=== PATIENT | female | born 1965 | race Caucasian/White ===

== ENCOUNTER 2016-08-05 15:38 | Inpatient (IN) ==
[2016-08-05 21:11] LABS: PROTIME 10.5 Seconds (9.2-11.7); PTT 26.3 Seconds (22.0-36.0)
[2016-08-05 21:15] LABS: BASO% 1.6 % (0.0-0.8); EOS# 0.01 X1000 (0.0-0.7); EOS% 1.6 % (0.0-10.0); HEMATOCRIT 25.1 % (37.0-47.0); HEMOGLOBIN 8.3 g/dL (12.0-16.0); LYMPH# 0.47 X1000 (1.2-3.4); LYMPH% 75.8 % (20.5-51.1); MANUAL DIFF NEEDED? YES; MCHC 33.1 g/dL (33-37); MCV 90.6 FL (81-99); MONO# 0.08 X1000 (0.11-0.59); MONO% 12.9 % (1.7-9.3); MPV 9.3 FL (7.4-10.4); NEUT% 8.1 % (42.2-75.2); PLT 127 X1000 (130-400); RBC 2.77 XMIL (4.2-5.4)
[2016-08-05 21:21] LABS: AGAP 15; ALBUMIN 3.6 g/dL (3.5-5.0); ALKALINE PHOSPHATASE 105 U/L (32-104); BUN 8 mg/dL (8-22); CALCIUM 8.6 mg/dL (8.8-10.2); CHLORIDE 102 mmol/L (98-107); COSMO 274; GOT 12 U/L (10-30); GPT 24 U/L (10-36); POTASSIUM 3.7 mmol/L (3.5-5.1); SODIUM 138 mmol/L (136-145); TCO2 21 mmol/L (25-35); TOTAL BILIRUBIN 0.33 mg/dL (0.20-1.00); TOTAL PROTEIN 6.3 g/dL (6.3-8.3)
[2016-08-05 21:33] LABS: BANDS 4 % (0-1); EOS 4 % (1-10); LYMPHS 62 % (21-51); MONO 16 % (1-9)
[2016-08-05] MEDS ORDERED: CALMOSEPTINE OINTMENT TOP PRN (22:04)
[2016-08-05] MEDS: SODIUM CHLORIDE 0.9% INJ SCH (22:19)
[2016-08-05] MEDS: PROTONIX IV SCH (22:19)
[2016-08-05] MEDS ORDERED: NS 1,000 ML IV SCH (22:38)
[2016-08-05] MEDS ORDERED: PHENERGAN PO PRN (23:21)
[2016-08-05] MEDS: TYLENOL PO PRN (23:24)
[2016-08-05] MEDS: MAXIPIME 1 GM/NS 1 GM/50 ML IVPB IV SCH (23:24)
[2016-08-05 23:34] LABS: URINE CULTURE NEEDED? NO; URINE SOURCE CLEAN CATCH
[2016-08-06 00:10] LABS: BILIRUBIN URINE NEGATIVE (NEGATIVE); BLOOD URINE NEGATIVE (NEGATIVE); COLOR YELLOW; GLUCOSE URINE NEGATIVE (NEGATIVE); LEUKOCYTES URINE NEGATIVE (NEGATIVE); NITRITE URINE NEGATIVE (NEGATIVE); PROTEIN URINE 50 mg/dL (NEGATIVE); TURBIDITY URINE HAZY (CLEAR); UROBILINOGEN URINE NORMAL (NORMAL)
[2016-08-06 00:11] LABS: URINE MICRO REVIEW NEEDED? YES
[2016-08-06 00:17] LABS: UR EPITHELIAL CELLS <10 /HPF (<10); URINE BACTERIA NEGATIVE /HPF; URINE RBC <10 /HPF (<10); URINE WBC <10 /HPF (<10)
[2016-08-06 00:23] LABS: URINE CASTS NONE SEEN; URINE CRYSTALS NONE SEEN; URINE SMALL ROUND CELLS NONE SEEN
[2016-08-06] MEDS ORDERED: MOTRIN PO PRN ×2 (01:56)
[2016-08-06] MEDS: FLAGYL 500 MG/NS 500 MG/100 ML IVPB IV SCH ×2 (04:42→17:55)
[2016-08-06] MEDS: ZOFRAN IV PRN ×2 (06:29→22:47)
[2016-08-06 06:47] LABS: AGAP 15; BUN 7 mg/dL (8-22); CALCIUM 8.5 mg/dL (8.8-10.2); CHLORIDE 103 mmol/L (98-107); COSMO 276; POTASSIUM 3.4 mmol/L (3.5-5.1); SODIUM 138 mmol/L (136-145); TCO2 20 mmol/L (25-35)
[2016-08-06 07:03] LABS: BASO% 3.1 % (0.0-0.8); EOS# 0.01 X1000 (0.0-0.7); EOS% 1.6 % (0.0-10.0); HEMATOCRIT 23.1 % (37.0-47.0); HEMOGLOBIN 7.4 g/dL (12.0-16.0); LYMPH# 0.44 X1000 (1.2-3.4); LYMPH% 68.8 % (20.5-51.1); MANUAL DIFF NEEDED? YES; MCH 29.2 PG (27-31); MCV 91.3 FL (81-99); MONO# 0.11 X1000 (0.11-0.59); MONO% 17.2 % (1.7-9.3); MPV 9.5 FL (7.4-10.4); NEUT% 9.3 % (42.2-75.2); PLT 103 X1000 (130-400); RBC 2.53 XMIL (4.2-5.4)
[2016-08-06 07:24] LABS: EOS 2 % (1-10); LYMPHS 72 % (21-51); MONO 16 % (1-9)
--- NOTE | 2016-08-06 07:56 | HISTORY AND PHYSICAL ---
PRIMARY CARE PROVIDER: ONEIL Portillo CHIEF COMPLAINT: Diarrhea. HISTORY OF PRESENT ILLNESS: Ms. Gomez is a 50-year-old, female who has a history of recent diagnosis with left breast cancer currently receiving chemotherapy and being followed by Dr. Brandt. The patient received her last chemotherapy treatment last Monday, July 29. The patient reports that yesterday on August 04, that she began having diarrhea and reports that in the last 24 hours, she has had approximately 7 episodes of diarrhea. She reports that her stools are very watery, though light brown in color. She denies any hematochezia or melena. She also reports a productive cough for the past few days as well stating that her sputum greenish brown in color. She also reports some body aches and chills though denied any knowledge of fever. The patient reports some nausea though denied any vomiting. She denied any dizziness, lightheadedness, shortness of breath, chest pain, abdominal pain, dysuria or urinary frequency. She denies any eye pain, numbness, tingling or swelling in extremities. The patient initially presented to the ER at [place] for evaluation of her diarrhea. Upon further evaluation, lab work did reveal that the patient was neutropenic with a white blood cell count is 0.6. Hemoglobin was 8.9 and hematocrit was 27.8. Chemistry labs were within normal limits. An abdomen flat and upright with single view of the chest showed no evidence of acute intrathoracic or intra-abdominal abnormality. The patient was accepted to [facility] by Dr. Patterson and was transferred to an inpatient bed. The patient also denied being around anyone else who was sick. She denied any recent travel. She only stated that both of her daughters have had sinus allergy-type symptoms. The patient did have a fever recorded at [place] of 101.6, though upon arrival at this time, her fever has come down to 100.7. The patient has been placed for inpatient admission for neutropenic fever as well as breast cancer and we will consult Dr. Brandt as well for further evaluation and recommendations. REVIEW OF SYSTEMS: A 12 point review of systems was conducted with the patient and all were negative except for pertinent positives mentioned above in the HPI. PAST MEDICAL HISTORY: 1. Hypertension. 2. Hyperlipidemia. 3. Depression. 4. Gastroesophageal reflux disease. 5. Malignant neoplasm of the upper outer quadrant of the left breast. PAST SURGICAL HISTORY: . SOCIAL HISTORY: The patient is and currently lives with her spouse. She has 2 daughters. The patient reports that she has smoked about half a pack per day for about 25 years, though has recently cut this down to approximately 2 cigarettes per day. She denies any alcohol or illicit drug use. FAMILY HISTORY: Positive for her mother having a history of hypertension. Her father has a history of heart disease and hypertension. Both her mother and father are . Her brother had a history of heart disease and diabetes mellitus. Her sister has a history of heart disease and she had 1 brother that at a young age who had a history of Down' s syndrome with cardiac problems. She does have an aunt who has a history of breast cancer. ALLERGIES: Patient reports allergies to sulfa. HOME MEDICATIONS: 1. Atorvastatin 40 mg p.o. daily. 2. BuSpar 7.5 mg p.o. b.i.d. 3. Losartan 50 mg p.o. daily. 4. Prozac 20 mg p.o. at bedtime and 40 mg p.o. daily for a total daily dose of 60 mg. 5. Gabapentin 600 mg p.o. t.i.d. 6. Lasix 40 mg p.o. daily p.r.n. for swelling. 7. Methocarbamol 750 mg p.o. t.i.d. 8. [place] 10 one tablet p.o. q.6 hours p.r.n. for pain. 9. Protonix 40 mg p.o. daily. 10. Phenergan 25 mg p.o. q.6 hours p.r.n. for nausea. 11. Zofran ODT 8 mg sublingual q.8 hours p.r.n. for nausea. DIAGNOSTIC DATA: Laboratory results: White blood cell count 0.62, red blood cell count 2.77, hemoglobin 8.3, hematocrit 25.1; absolute neutrophils 0.05. Platelet count was 127,000. PT 10.5, INR 1.00, PTT is 26.3. Sodium 138, potassium 3.7, chloride 102, bicarbonate 21 , BUN is 8, creatinine 0.6. Glucose 104, calcium 8.6, total bilirubin 0.33, AST is 12, ALT 24, alkaline phosphatase 105. Urinalysis obtained via clean catch was positive for protein that was negative for glucose, ketones, blood, nitrites, leukocytes, and white cells. Chest, 2 view, showed no acute abnormality, though we are awaiting the official radiology over- read. Pending diagnostic studies at this time are blood cultures, stool studies and urine culture. PHYSICAL EXAMINATION: VITAL SIGNS: Temperature 100.7 degrees orally, heart rate 102, blood pressure 128/69, oxygen saturation is 98% on room air. Respirations are 18 per minute. GENERAL: Ms. Gomez is a very pleasant 50-year-old, female, who was resting comfortably in the inpatient bed. She was in no acute distress. She was awake, alert, and able to answer all questions appropriately. HEENT: Head is atraumatic, normocephalic. Pupils are equal, round, reactive to light and were 3 mm bilaterally and brisk. Subconjunctivae were slightly pale. Oropharynx was clear. Oral mucosa is moist. NECK: Supple. Trachea midline. CARDIOVASCULAR: Patient has normal S1, S2. No murmurs, gallops, rubs appreciated, with a slightly tachycardic rate that is regular. PULMONARY: Patient has symmetrical chest expansion bilaterally. Lung sounds are clear to auscultation in bilateral full mahan. ABDOMEN: Soft, nontender, nondistended, though the patient does have a protuberant abdomen noted. Bowel sounds were present in all 4 quadrants and were normoactive. The patient has no CVA tenderness noted upon palpation. EXTREMITIES: No cyanosis, clubbing, or edema noted. Pulse, motor and sensory were intact in all extremities. Pedal pulses and radial pulses are 2+ bilaterally. INTEGUMENTARY: Patient's skin is pink, warm, dry, and intact. No lesions or sores noted. NEUROLOGICAL: Patient is alert, oriented to person, place, time and situation. Cranial nerves 2- 12 are grossly intact. ASSESSMENT AND PLAN: 1. Neutropenic fever. As previously mentioned, we have obtained blood cultures and a urine culture. We have also placed orders for stool studies and sputum culture as well. Patient's chest x-ray shows no acute abnormality. We will go ahead and cover the patient with cefepime 1 g IV q.12 hours as well as Flagyl 500 mg IV q.8 hours. At this time, the patient has been running a fever with a previous reading of 101.6 and with treatment of Tylenol, her temperature did reduce to 100.7, and we will monitor this closely. We have placed a consult with Dr. Brandt as well and will await her evaluation and further recommendations. 2. Left breast cancer. The patient did just recently receive her 5th dose of chemotherapy with the last dose being on the 29 of July. We have consulted Dr. Brandt as previously mentioned. We will await her evaluation and further recommendations. 3. Diarrhea. We have placed stools studies and are awaiting these results at this time and we will continue to follow. We have also implemented gentle fluid resuscitation with normal saline at 75 mL/h. 4. Hypertension. We will continue the patient's Cozaar and will continue to follow. 5. Hyperlipidemia. We will continue the patient's atorvastatin. 6. Depression. We will continue the patient's Prozac. The patient will be placed on the medical floor with telemetry. She has been placed on neutropenic precautions. She will have vital signs q.6 hours with strict intake and output. DVT prophylaxis provided with SCDs. GI prophylaxis with Protonix 40 mg IV q.24 hours. We will implement Tylenol and Motrin for fever control. Further orders and recommendations pending hospital course, diagnostic studies and physician evaluation. Dictated by ONEIL Car for Michael Moody MD cc: Michael Moody MD pt examined, agree with above, will follow closely, need to closely work up fever, have empirically started abx to cover c diff and GNR infection per IDSA crinadiyaia APBOB MTDD
--- NOTE | 2016-08-06 08:04 | Diag Imaging Result Doc PS360 ---
EXAM: CHEST-2 VIEWS HISTORY: Productive cough, fever TECHNIQUE: PA and lateral COMMENT: There are granulomata in both upper lobes and the right hilum. There is a Port-A-Cath in the right internal jugular with its tip in the superior vena cava. The heart size and pulmonary vascularity are within normal limits. There are no previous studies. There is a prominent right epicardial fat pad. IMPRESSION: No evidence of acute disease. Electronically signed by Junior Santa 08/06/2016 8:01 AM
[2016-08-06] MEDS: PROZAC PO SCH (10:39)
[2016-08-06] MEDS: NEURONTIN PO SCH ×3 (10:39→17:56)
[2016-08-06] MEDS: ROBAXIN PO SCH ×3 (10:39→17:55)
[2016-08-06] MEDS: COZAAR PO SCH (10:40)
[2016-08-06] MEDS: BUSPAR PO SCH ×2 (10:40→22:48)
[2016-08-06] MEDS: MAXIPIME 1 GM/NS 1 GM/50 ML IVPB IV SCH ×2 (10:50→22:51)
[2016-08-06] MEDS ORDERED: NEUPOGEN SUBQ SCH (11:55)
--- NOTE | 2016-08-06 12:41 | Diag Imaging Result Doc PS360 ---
EXAM: THORAX/ABDOMEN/PELVIS HISTORY: neutropenic fever TECHNIQUE: CT of the chest with intravenous contrast, CT of the abdomen and pelvis with intravenous and oral contrast, and reduced dose (clarity.) COMMENT: Compared to the previous study of 05/31/2016 there has been some diminishment in the heterogeneous density within the left breast as well as the enlarged axillary nodes which were present at the time the previous study. The largest node on the time the previous study has decreased by volume by at least 75%. There is no evidence of significant adenopathy in the miranda or mediastinum. There is a filling defect in a left lower lobe branch of the the pulmonary artery consistent with an embolus. This was not present time the previous study. There is an additional embolus in a peripheral branch in the right lower lobe posteromedially. There are no abnormal fluid collections. There are scattered calcified granulomata. There is a sclerotic lesion anterior to the right pedicle of T11 which may be a osteoblastic metastasis. This is also present in the time the previous study. CT of the abdomen with intravenous and oral contrast: The liver is hypodense suggesting fatty change. The left adrenal gland is unremarkable. There is a nodule or nodules in the anterior central portion of the right adrenal gland which has not changed appreciably since the previous study. This is too small to characterize. The kidneys are without evidence of hydronephrosis or mass. There is very subtle stranding in the fat surrounding the gallbladder. Gallbladder is filled with stones in the 11 mm size range. The pancreas is unremarkable. There are granulomata in the spleen. The small bowel is not distended. There are some colonic diverticula particularly in the left colon. No retroperitoneal adenopathy is present. The appendix is normal in appearance and passes posterior to the lower portion of the right hepatic lobe. CT of the pelvis with intravenous and oral contrast: There is a fat-containing ventral hernia. There is no evidence of diverticulitis although there is considerable diverticulosis in the sigmoid colon. There is a calcification in the distal gonadal vein on the left. The ovaries are not enlarged. The urinary bladder is not particularly distended and there is no evidence of abnormal fluid collections. There are bone islands in both femoral heads. There are also what appear to be bone islands in the right ilium just above the acetabulum. There is vacuum joint phenomenon in the sacroiliac joints. There is three punctate areas of sclerosis in the right side of the sacrum which are nonspecific in appearance and have not changed significantly since the previous study. There is bilateral spondylolysis at L5. There is a sclerotic focus in the right side of the L3 vertebral body which may represent a metastasis. IMPRESSION: 1. Bilateral peripheral lower lobe pulmonary emboli. Probable osseous metastasis at T11. Improved left axillary adenopathy. 2. Hepatic steatosis. Cholelithiasis. The possibility of cholecystitis cannot be entirely excluded and clinical correlation is recommended. 3. Possible osseous metastasis at L3. The findings were discussed with Yuri Cantor MD at 08/06/2016 12:39 PM. Electronically signed by Junior Santa 08/06/2016 12:39 PM
[2016-08-06] MEDS ORDERED: NS 500 ML ONE (13:54)
[2016-08-06] MEDS: GRANIX SUBQ SCH (13:58)
[2016-08-06] MEDS: LOVENOX SUBQ SCH (14:21)
--- NOTE | 2016-08-06 15:33 | PROGRESS NOTE ---
DATE: 08/06/2016 This morning, Ms. Gomez refers to be doing fine. According to her she has been diagnosed of left breast cancer. We do not have any records in the EMR so we do not know the receptor status and genetic studies on that. However she has been getting chemotherapy. Last Monday was the 5th chemo that she got and the plan is for her to finish chemo and then get surgery for tumor removal. Since 3 days ago she has been having profuse diarrhea which is nonbloody associated with some fever and some cough. The patient presented to the emergency department yesterday and has been evaluated. Was found to have a temperature at one point of 101.2. Was tachycardic at 115 and lab work showed that she was severely neutropenic. OBJECTIVE: Vital signs: Now blood pressure is 111/40, pulse of 97, respirations 18, temperature 98.3 degrees. General: Ms. Gomez is a 50-year-old female, morbidly obese with a BMI of 37. She was in bed. She had a lot of blankets on her. She said she felt cold. HEENT: Mucosa is pink and moist. Anicteric. Acyanotic. Neck: Supple. Chest: Good air entry bilaterally. No crepitations. Cardiovascular: Regular rate and rhythm. Abdomen: Soft, nontender. Extremities: No pedal edema. LOCUM TENENS: Patient is alert and oriented x4. Breast exam: The left breast has an inverted nipple. Also has about maybe 4 x 3 mass on the left upper quadrant almost to the to the nipple. There was not any other changes of the skin overlying the mass. I did not feel any lymph nodes. LABORATORY DATA: WBC is 0.64, hemoglobin is 7.4, platelet count of 103,000. Sodium is 138, potassium is 3.4, chloride is 103, bicarb is 24. A chest x-ray which was done on presentation showed no evidence of acute disease. ASSESSMENT: 1. Severe neutropenic fever. Absolute neutrophil count is about 64. Patient blood cultures have been done and stool studies have also been ordered. Results are still pending. 2. Sepsis likely due to the source from GI. 3. Profuse diarrhea. This could potentially be side effects from the chemotherapy however typhilitis is also a consideration that would have to be in mind. Will be doing a CT scan of the abdomen and pelvic. 4. Cough. In the setting of neutropenic fever we want to make sure that there is not any pneumonia or any brewing infection in the lungs so we will we will add a CT of the chest to the studies above. 5. Pancytopenia likely due to chemotherapy side effects. We will continue symptomatic management and transfuse appropriately. Patient has been started on Neupogen. We will follow up with further recommendations from Heme-Onc. So in general, Ms. Gomez has been admitted because of severe neutropenic fever. We will do a CT scan of the chest, abdomen and pelvis. We are also waiting on the blood cultures, urine cultures and stool studies. We will continue with the current antibiotics including cefepime with metronidazole and continue with IV fluids. cc: Yuri Cantor MD Review Ct Report: IMPRESSION: 1. Bilateral peripheral lower lobe pulmonary emboli. Probable osseous metastasis at T11. Improved left axillary adenopathy. 2. Hepatic steatosis. Cholelithiasis. The possibility of cholecystitis cannot be entirely excluded and clinical correlation is recommended. 3. Possible osseous metastasis at L3. The findings were discussed with Yuri Cantor MD at plan: start Lovenox 1mg/kg request RUQ U/S Consult surgery MTDD
--- NOTE | 2016-08-06 17:08 | CONSULTATION ---
DATE OF CONSULTATION: 08/06/2016 ADMITTING PHYSICIAN: Dr. Jacinto Moody. REQUESTING PHYSICIAN: Dr. Moody. We appreciate this consult. CHIEF COMPLAINT: Neutropenic fever. HISTORY OF PRESENT ILLNESS: Ms. Gomez is a very pleasant, 50-year-old female, well known to Dr. Brandt with a history of recent diagnosis of left breast cancer stage III, triple negative, on neoadjuvant treatment with Adriamycin and Cytoxan. She is status post cycle 4 with her last treatment being 07/29/2016. The patient reports that she has had recent worsening chills and diarrhea. She denies any hematochezia or melena. Additionally she reports that she has had a cough that is productive of greenish brown sputum. She denies any dysuria at this time. The patient reports that she felt warm and felt that she had a fever but did not take her temperature. Upon presentation to [facility] the patient was found to have a temperature of 100.0 degrees. Additionally on presentation the patient's white blood cell count is found to be 0.64 with an ANC of 0.06. The patient is admitted to [facility] and is currently on reverse isolation. Blood cultures have been drawn. Chest x-ray is negative for any acute disease. Urinalysis with urine cultures are currently pending at this time. She is currently on broad-spectrum antibiotic with cefepime. PAST MEDICAL HISTORY: 1. Hypertension. 2. Hyperlipidemia. 3. Depression. 4. Gastroesophageal reflux disease. 5. Newly diagnosed triple negative stage III breast cancer on neoadjuvant treatment with Adriamycin and Cytoxan. PAST SURGICAL HISTORY: Significant for section. SOCIAL HISTORY: The patient is and lives with her spouse. She has a history of smoking 1/2 pack cigarettes daily x25 years. She denies any alcohol or illicit drug use. FAMILY HISTORY: Significant for an aunt with breast cancer and is otherwise negative for any hematologic or oncologic problem. MEDICATIONS ON ADMISSION: 1. Atorvastatin. 2. BuSpar. 3. Losartan. 4. Prozac. 5. Gabapentin. 6. Lasix. 7. Methocarbamol. 8. [place]. 9. Protonix. 10. Phenergan. 11. Zofran. ALLERGIES: Are to sulfa. REVIEW OF SYSTEMS: A 14 point review of systems was obtained and is negative except as mentioned in HPI. PHYSICAL EXAM: Ms. Gomez is a very pleasant, 50-year-old female, lying supine in bed in no immediate distress.Vital Signs: Temperature 98.3 degrees, blood pressure 111/40, heart rate 94, respirations 14, O2 saturation is 97% on room air. HEENT: Normocephalic, atraumatic. Mucous membranes are pale and somewhat dry. Sclerae is anicteric. Extraocular movements intact. Neck: Supple. Lungs: With coarse breath sounds especially in the bases. Otherwise clear to auscultation bilaterally. Chest: Expansion is equal bilaterally. CV: S1, S2 is heard without murmur, rub or gallop. Abdomen: Soft, nondistended, nontender. Bowel sounds are positive in all quadrants without rebound or guarding. Extremities: Without clubbing, cyanosis, or edema. Dermatologic: No rashes, bruises or lesions. Neurologic: Patient is awake, alert, and oriented x3. She has no focal motor deficit at this time. LABORATORY DATA: Sodium 138, potassium 3.4, chloride 103, CO2 is 20, BUN 7, creatinine 0.6, and glucose is 136. Hemoglobin 7.4, hematocrit 23.1, white blood cell count is 0.64. Platelets are 103,000. ANC is 0.06. Cultures are currently pending. Chest x-ray is negative for any acute disease. ASSESSMENT AND PLAN: 1. Neutropenic fever with an ANC of 0.06. The patient is currently afebrile with a temperature of 98.3 degrees. Cultures are currently pending. Chest x-ray is negative for any acute disease. The patient is currently on cefepime broad-spectrum. We agree with cefepime at this time. We would add Neupogen daily to her regimen. We will continue to monitor CBC. 2. Anemia with a hemoglobin of 7.4. We will order 2 units packed red blood cells at this time and monitor CBC daily. 3. Newly diagnosed triple negative stage III breast cancer on neoadjuvant treatment with Adriamycin and Cytoxan status post cycle 4. Her last treatment was on July 29. We will hold her treatment until her acute illness passes. 4. Diarrhea which is improving. Will continue to monitor. Cultures are currently pending. 5. Hypertension which is stable. Blood pressure is 111/40 at this time. We will continue to monitor. 6. Hyperlipidemia, would continue treatment. 7. DVT prophylaxis. The patient is currently wearing SCDs. 8. We will continue to follow along and make further recommendations pending outcomes. The above reflects the history, exam, assessment and plan of Dr. Galeano. Dictated by ONEIL Juan for Shayan Galeano MD cc: ONEIL Juan MD
[2016-08-06] MEDS: NORCO-10 PO PRN ×2 (17:33→23:32)
--- NOTE | 2016-08-06 19:06 | CONSULTATION ---
DATE OF CONSULTATION: 08/06/2016 HISTORY OF PRESENT ILLNESS: Ms. Caro Gomez was admitted yesterday on 08/05/2016 with neutropenic fever with an absolute neutrophil count of 0.06. She is being treated with neoadjuvant chemotherapy for triple negative left breast cancer. She has been on Adriamycin and Cytoxan and has received 4 cycles, the last 1 on 07/29/2016. She was admitted with worsening chills and fever and diarrhea. She underwent a CT scan of her abdomen and pelvis as part of her evaluation, which documented a gallbladder full of stones and we were asked to evaluate her. She has received 2 units of packed red blood cells over the last 24 hours for hemoglobin of 7.4. She is on IV antibiotics. PAST MEDICAL HISTORY: Hypertension, hyperlipidemia, depression, gastroesophageal reflux and newly diagnosed left breast cancer, triple negative, receiving neoadjuvant chemotherapy. PAST SURGICAL HISTORY: . SOCIAL HISTORY: She is a smoker. She lives with her spouse. She has had care in [place] including Dr. Johnson, who placed the right-sided port and also referred her to Dr. Brandt. FAMILY HISTORY: She has an aunt with breast cancer. REVIEW OF SYSTEMS: A 14-point review of systems was performed and besides undergoing her chemotherapy and her most recent diagnosis of left breast cancer, it is essentially negative. MEDICATIONS: Atorvastatin, BuSpar, losartan, Prozac, gabapentin, Lasix, methocarbamol, [place], Protonix and most recently Adriamycin and Cytoxan. ALLERGIES: No known drug allergies. PHYSICAL EXAMINATION: General: Ms. Gomez is overweight. She has lost her hair but she is awake, cooperative, in no acute distress. HEENT: She has no jaundice. No oral lesions. No cervical or supraclavicular lymphadenopathy. Breast: She has a left breast cancer. No scars on either breast. Abdomen: Soft. I could not palpate any ventral hernia. There is no previous scars except the scar. Did not appear to be tender in the right upper quadrant. She had no costovertebral tenderness. Rectal/Vaginal: Exams not performed. Extremities: She did have palpable femoral pulses. She has no peripheral edema. Neuro: No focal deficits. DIAGNOSTIC DATA: Her blood counts are all low. She has received packed red blood cells. Her white blood cell count is 0.6. CT suggests gallstones. IMPRESSION: Chronic cholecystitis with cholelithiasis in a patient diagnosed with triple negative left breast cancer on neoadjuvant chemotherapy with low blood counts. PLAN: I will have to coordinate elective laparoscopic cholecystectomy with her medical oncologist. We want to proceed when her blood counts are within normal range. She is on IV antibiotics now with improvement of her symptoms and her blood counts are also improving with the current treatment. cc: Ayanna Jolly MD
[2016-08-06] MEDS ORDERED: PROZAC PO SCH (21:00)
[2016-08-06] MEDS: SODIUM CHLORIDE 0.9% INJ SCH (22:47)
[2016-08-06] MEDS: PROTONIX IV SCH (22:47)
[2016-08-06] MEDS: LIPITOR PO SCH (22:49)
[2016-08-07] MEDS: LOVENOX SUBQ SCH ×2 (02:11→14:27)
[2016-08-07] MEDS: FLAGYL 500 MG/NS 500 MG/100 ML IVPB IV SCH ×3 (02:11→17:56)
[2016-08-07] MEDS: TYLENOL PO PRN (05:54)
[2016-08-07 07:20] LABS: BASO% 2.9 % (0.0-0.8); EOS# 0.01 X1000 (0.0-0.7); EOS% 0.4 % (0.0-10.0); HEMOGLOBIN 8.5 g/dL (12.0-16.0); IMM GRAN# 0.16 X1000 (0.0-0.04); IMM GRAN% 5.8 % (0.0-0.5); LYMPH# 1.15 X1000 (1.2-3.4); LYMPH% 41.5 % (20.5-51.1); MANUAL DIFF NEEDED? YES; MCH 29.7 PG (27-31); MCHC 32.7 g/dL (33-37); MCV 90.9 FL (81-99); MONO# 0.68 X1000 (0.11-0.59); MONO% 24.5 % (1.7-9.3); MPV 10.4 FL (7.4-10.4); NEUT% 24.9 % (42.2-75.2); PLT 105 X1000 (130-400); RBC 2.86 XMIL (4.2-5.4)
--- NOTE | 2016-08-07 07:55 | Diag Imaging Result Doc PS360 ---
EXAM: US GB < RUQ (LIMITED) HISTORY: r/o acute cholecystitis TECHNIQUE: Transabdominal COMMENT: The liver is hyperechoic. The pancreas is unremarkable. The aorta and inferior vena cava are normal in appearance where there are visible. Right kidney is without evidence of hydronephrosis. There is a cyst in the upper pole measuring 1.4 cm in diameter. There is antegrade flow in the portal vein. The common bile duct measures 5 mm. There are numerous stones in the gallbladder in the centimeter size range. The gallbladder is not particularly distended and there is no evidence of pericholecystic fluid. There may be thickening of the gallbladder wall. There is no sonographic Ramsey sign. IMPRESSION: Cholelithiasis. Hepatic steatosis. Electronically signed by Junior Santa 08/07/2016 7:53 AM
[2016-08-07 07:56] LABS: AGAP 16; BUN 3 mg/dL (8-22); CALCIUM 8.9 mg/dL (8.8-10.2); CHLORIDE 103 mmol/L (98-107); COSMO 275; POTASSIUM 3.4 mmol/L (3.5-5.1); SODIUM 140 mmol/L (136-145); TCO2 21 mmol/L (25-35)
[2016-08-07 08:01] LABS: BANDS 4 % (0-1); LYMPHS 46 % (21-51); MONO 18 % (1-9)
[2016-08-07 08:02] LABS: HYPOCHROM 1+
[2016-08-07] MEDS: BUSPAR PO SCH ×2 (09:57→20:27)
[2016-08-07] MEDS: GRANIX SUBQ SCH (09:58)
[2016-08-07] MEDS: ROBAXIN PO SCH ×3 (09:58→20:27)
[2016-08-07] MEDS: NEURONTIN PO SCH ×3 (09:58→20:27)
[2016-08-07] MEDS: NORCO-10 PO PRN ×3 (09:58→23:17)
[2016-08-07] MEDS: PROZAC PO SCH (09:58)
[2016-08-07] MEDS: COZAAR PO SCH (10:02)
[2016-08-07] MEDS: MAXIPIME 1 GM/NS 1 GM/50 ML IVPB IV SCH ×3 (10:52→21:46)
--- NOTE | 2016-08-07 12:34 | PROGRESS NOTE ---
DATE: 08/07/2016 Ms. Caro Gomez is a 50-year-old white female being treated for advanced triple negative breast cancer, left breast. She is admitted with neutropenic fever and a CT scan of her abdomen and pelvis was done as part of her evaluation which shows gallstones but there is no evidence of acute cholecystitis. She has no tenderness in that area. She had significant neutropenia. This is improving with recent treatment. Her white blood cell count has gone from 0.64 to 2.77. Hematocrit is 26% after blood transfusion. I feel we need to consider elective laparoscopic cholecystectomy on an outpatient basis as her blood counts improve and I can coordinate this with her medical oncologist. cc: Ayanna Jolly MD
--- NOTE | 2016-08-07 19:52 | PROGRESS NOTE ---
DATE: 08/07/2016 SUBJECTIVE: Today, Ms. Gomez referred to be doing a whole lot better. According to her, the diarrhea has significantly improved. OBJECTIVE: Vital signs: Blood pressure 102/54, pulse of 89, respirations 20, temperature 98.2 degrees. General: Ms. Gomez is a 50-year-old female. She is in bed. She did not seem to be in any distress. HEENT: Mucosa is moist, anicteric, and acyanotic. Neck: Supple. Chest: Clear. Cardiovascular: Regular rate and rhythm. Abdomen: Soft. Bowel sounds are present. There is no tenderness. Central Nervous System: Patient is alert and oriented x4. Extremities: No pedal edema. Breast: There is a 4 x 3 mass in the left breast at the upper outer quadrant. The nipple is inverted. LABORATORY DATA: WBC is 2.75, hemoglobin is 8.5, platelet count of 105. Absolute neutrophil count is 332.4. Chemistry is reviewed. Potassium is 3.4. ASSESSMENT: 1. Neutropenic fever. Absolute neutrophil count has improved to 332. Will continue with the current antibiotics. 2. Sepsis presentation likely due to GI source. 3. Profuse diarrhea. We think this is likely due to chemotherapy side effects. This is improving. We will continue with adequate hydration, and also replacement of all electrolyte abnormalities. 4. Cough, improved. 5. Pancytopenia, likely due to chemotherapy side effects. 6. Hypokalemia. Will replace this. 7. Cholelithiasis with chronic cholecystitis. A recent ultrasound did not show any acute cholecystitis. Per the surgery note today, they plan to do a laparoscopic cholecystectomy on an outpatient basis once her numbers have improved. PLAN: We are going to continue with the current antibiotic coverage. We would continue with the IV hydration. Patient is on Neupogen. Hopefully, by tomorrow the numbers will be a whole lot better. I anticipate the patient being discharged within a day or two. cc: Yuri Cantor MD
[2016-08-07] MEDS: PROTONIX IV SCH (20:26)
[2016-08-07] MEDS: SODIUM CHLORIDE 0.9% INJ SCH (20:27)
[2016-08-07] MEDS: LIPITOR PO SCH (20:27)
[2016-08-08] MEDS: LOVENOX SUBQ SCH ×2 (02:21→13:01)
[2016-08-08] MEDS: FLAGYL 500 MG/NS 500 MG/100 ML IVPB IV SCH ×2 (02:24→09:29)
[2016-08-08 07:19] LABS: AGAP 15; BUN 3 mg/dL (8-22); CALCIUM 8.4 mg/dL (8.8-10.2); CHLORIDE 104 mmol/L (98-107); COSMO 281; POTASSIUM 3.1 mmol/L (3.5-5.1); SODIUM 142 mmol/L (136-145); TCO2 23 mmol/L (25-35)
[2016-08-08 07:29] LABS: HEMOGLOBIN 8.6 g/dL (12.0-16.0); MANUAL DIFF NEEDED? YES; MCH 29.3 PG (27-31); MCHC 31.9 g/dL (33-37); MCV 91.8 FL (81-99); MPV 10.6 FL (7.4-10.4); PLT 145 X1000 (130-400); RBC 2.94 XMIL (4.2-5.4)
[2016-08-08] MEDS ORDERED: KLOR-CON PO ONE (07:54)
[2016-08-08 08:36] LABS: BANDS 18 % (0-1); LYMPHS 24 % (21-51); MONO 10 % (1-9)
[2016-08-08] MEDS: COZAAR PO SCH (09:28)
[2016-08-08] MEDS: BUSPAR PO SCH ×2 (09:28→22:21)
[2016-08-08] MEDS: ROBAXIN PO SCH ×3 (09:28→16:24)
[2016-08-08] MEDS: PROZAC PO SCH (09:28)
[2016-08-08] MEDS: NEURONTIN PO SCH ×3 (09:29→16:24)
[2016-08-08] MEDS: MAXIPIME 1 GM/NS 1 GM/50 ML IVPB IV SCH (10:59)
[2016-08-08] MEDS ORDERED: IMODIUM PO PRN (12:35)
[2016-08-08] MEDS: MBX SOLUTION PO PRN ×2 (13:23→16:24)
--- NOTE | 2016-08-08 13:47 | PROGRESS NOTE ---
DATE: 08/08/2016 SUBJECTIVE: Today Ms. Gomez refers to be relatively weaker than yesterday but no fever. OBJECTIVE: Vital signs: Blood pressure 127/52, pulse of 93, respirations and 18, temperature 98.1 degrees. Patient is saturating 96% on room air. General: Ms. Gomez is a 50-year-old female. She was in bed. Not in any seemingly distress. HEENT: Mucosa is pink and moist. Anicteric. Acyanotic. Neck: Supple. Chest: Clear. Cardiovascular: Regular rate and rhythm. Abdomen: Soft. Slightly hyperdynamic bowel sounds. Extremities: No pedal edema. [employer]ING: Patient is alert and oriented x4. Chest: On the chest wall, the left breast has about a 4 x 3 mass in the outer quadrant. LABORATORY DATA: WBC is up to 15.35, hemoglobin is 8.6, platelet count is up to 145,000. Chemistry is reviewed. Potassium is slightly low at 3.1. ASSESSMENT: 1. Neutropenic fever. Absolute neutrophil count has normalized and total white blood cell count has also normalized. We will therefore go ahead and discontinue the Neupogen. 2. Sepsis on presentation, likely due to gastrointestinal. So far blood cultures have been completely negative and stool studies have also been unremarkable. We are going to discontinue the IV antibiotics and switch it to just Cipro. 3. Profuse diarrhea secondary to chemotherapy side effects. As I said, stool studies have been unremarkable. We will give the patient a dose of Imodium to see if it will help slow it down. 4. Pancytopenia due to chemotherapy side effects. This has resolved. 5. Hypokalemia. Will continue to replace this. 6. Cholelithiasis with chronic cholecystitis. Patient has been evaluated by surgery and they plan to do surgery on an outpatient basis. PLAN: So in general, I think Ms. Gomez is doing a whole lot better. The neutropenia is resolved. We would discontinue the Neupogen. I will also change the IV antibiotics to p.o. Cipro. Blood cultures, urine, stool all have been negative. The patient is clinically improved. Because she says she does not feel great this morning we will observe her see, she will tolerate the p.o. antibiotics, and see if we can slow down the diarrhea before we discharge her tomorrow morning. Will replace all of her electrolytes abnormalities. cc: Yuri Cantor MD
[2016-08-08] MEDS: NORCO-10 PO PRN ×2 (15:26→22:25)
[2016-08-08] MEDS: CIPRO PO SCH (22:21)
[2016-08-08] MEDS: LIPITOR PO SCH (22:22)
[2016-08-09] MEDS: LOVENOX SUBQ SCH (01:59)
[2016-08-09] MEDS: ZOFRAN IV PRN ×2 (01:59→09:38)
[2016-08-09 06:36] LABS: EOS# 0.01 X1000 (0.0-0.7); EOS% 0.1 % (0.0-10.0); HEMATOCRIT 27.1 % (37.0-47.0); HEMOGLOBIN 8.8 g/dL (12.0-16.0); LYMPH# 1.98 X1000 (1.2-3.4); LYMPH% 10.7 % (20.5-51.1); MANUAL DIFF NEEDED? YES; MCH 29.9 PG (27-31); MCHC 32.5 g/dL (33-37); MCV 92.2 FL (81-99); MONO# 2.08 X1000 (0.11-0.59); MONO% 11.3 % (1.7-9.3); MPV 10.1 FL (7.4-10.4); PLT 144 X1000 (130-400); RBC 2.94 XMIL (4.2-5.4)
[2016-08-09 06:50] LABS: AGAP 12; BUN 5 mg/dL (8-22); CALCIUM 8.7 mg/dL (8.8-10.2); CHLORIDE 102 mmol/L (98-107); COSMO 278; POTASSIUM 3.6 mmol/L (3.5-5.1); SODIUM 140 mmol/L (136-145); TCO2 26 mmol/L (25-35)
[2016-08-09 07:09] LABS: BANDS 18 % (0-1); LYMPHS 16 % (21-51); MONO 12 % (1-9); NRBC 1 % (0-0)
[2016-08-09 08:12] VITALS: BP 111/61
[2016-08-09] MEDS: BUSPAR PO SCH (09:31)
[2016-08-09] MEDS: ROBAXIN PO SCH (09:32)
[2016-08-09] MEDS: NEURONTIN PO SCH (09:32)
[2016-08-09] MEDS: COZAAR PO SCH (09:32)
[2016-08-09] MEDS: PROZAC PO SCH (09:32)
[2016-08-09] MEDS: NORCO-10 PO PRN (09:38)
[2016-08-09] MEDS: CIPRO PO SCH (09:38)
[2016-08-09] MEDS ORDERED: CULTURELLE PO SCH (21:00)
--- NOTE | 2016-08-11 09:32 | DISCHARGE SUMMARY ---
ADMISSION DATE: 08/05/2016 DISCHARGE DATE: 08/09/2016 CONSULTATIONS: 1. Dr. Galeano with Hematology/Oncology. 2. Dr. Jolly with General Surgery. PERTINENT PROCEDURES: 1. Chest, abdomen, and pelvis CT showed bilateral peripheral lower lobe pulmonary emboli, possible osseous metastasis at T11, improved left axillary adenopathy, hepatic steatosis, cholelithiasis, possible osseous metastasis at L3. 2. Abdominal ultrasound showed cholelithiasis and hepatic steatosis. DISCHARGE DIAGNOSES: 1. Neutropenic fever. Absolute neutrophil count normalized. White blood count has also normalized. 2. Sepsis on presentation secondary to gastroenteritis. Blood cultures are negative. Patient switched to oral Cipro. Resolved. 3. Profuse diarrhea secondary to chemotherapy side effects, improved. 4. Pancytopenia secondary to chemotherapy, resolved. 5. Hypokalemia, resolved. 6. Cholelithiasis with chronic cholecystitis. The patient was evaluated by Surgery. They will plan cholecystectomy on an outpatient basis. 7. Bilateral pulmonary embolism. The patient will be treated with 100 mg of subcutaneous Lovenox every 12 hours. Continue to follow up with Dr. Brandt. HOSPITAL COURSE: Ms. Gomez is a 50-year-old female with a history of recently diagnosed with left breast cancer, receiving chemotherapy, followed by Dr. Brandt. Received her last chemotherapy treatment on 07/29/2016, and then on 08/04/2016, she began having diarrhea. Reports that in the last 24 hours, she had 7 episodes of diarrhea. Her stools were very watery, light-brown in color. She had initially presented to the ER in [place] for evaluation of her diarrhea. Upon further evaluation, her lab work revealed she was neutropenic with a white count of 0.6, hemoglobin of 8, hematocrit of 27. Chemistry labs within normal limits. Abdominal flat and upright of the chest showed no evidence of acute abnormalities. The patient was transferred to [facility]. She also had a fever of 101.6 on arrival. Blood cultures were obtained as well as urine cultures. The patient was started on IV antibiotics with cefepime as well as Flagyl, with a consult for Hematology. Stool studies will also be collected, as well as gentle fluid resuscitation and placed on neutropenic precautions. Throughout her hospital stay, her neutropenia has resolved. Her Neupogen was discontinued. Her IV antibiotics were changed to p.o. Cipro. Blood cultures, urine cultures, and stool cultures have all been negative. The patient has clinically improved. The patient's diarrhea also slowed, so she was appropriate for discharge on 08/09/2016. DISCHARGE DIET: Healthy heart. DISCHARGE MEDICATIONS: As per Dr. Cantor. Please see MAR. FOLLOWUP: The patient was discharged home with self-care. She is to follow up with Dr. Brandt as instructed, and she will also follow up with Dr. Jolly on an outpatient basis so they can pursue an outpatient cholecystectomy. The patient can return to the ED for any worsening of symptoms. Dictated by ONEIL Garay for Yuri Cantor MD cc: MD Pau Hendricks MD
== END 2016-08-09 12:33 | disposition home or self-care (01) ==
LOC: DIRADM 15:38 → SUATTDRO 15:38 → 4N 17:22 → 3N 08-06 18:31
PROVIDERS: ATTEND Internal Medicine